=== PATIENT | female | born 1965 | race Caucasian/White ===

== ENCOUNTER 2018-11-16 13:27 | Day surgery (SDC) | payer MEDICARE, MEDICAID ==
[2018-11-16] MEDS ORDERED: DIPRIVAN 200 MG/20 ML IV ONE (13:28)
[2018-11-16] MEDS ORDERED: Marcaine 0.5% SDV 10 ML IJ ONE (13:28)
[2018-11-16] MEDS ORDERED: Depo-Medrol 40 MG/ML IM ONE (13:28)
[2018-11-16] MEDS ORDERED: Xylocaine 1% Vial 30 ML PF IJ ONE (13:28)
[2018-11-16] MEDS ORDERED: Lactated Ringers 1,000 ML IV ONE (15:41)
--- NOTE | 2018-11-16 16:42 | XRAY ---
Indication: Right SI joint injection. Intraoperative fluoroscopy was provided for 7 seconds. 2 digital spot images submitted for interpretation demonstrates posterior needle tip projecting over the inferior right SI joint. Correlate with intraoperative findings/report. Partially visualized lower lumbar fusion spinal hardware.
--- NOTE | 2018-11-16 16:42 | XRAY ---
Indication: Left SI joint injection. Intraoperative fluoroscopy was provided for 8 seconds. 2 digital spot images submitted for interpretation demonstrates posterior needle tip projecting over the inferior left SI joint. Correlate with intraoperative findings/report. Partially visualized lower lumbar fusion spinal hardware.
--- NOTE | 2018-11-16 16:44 | XRAY ---
7 seconds fluoroscopy time in surgery for right SI joint injection.
--- NOTE | 2018-11-16 16:44 | XRAY ---
8 seconds fluoroscopy time in surgery for left SI joint injection.
== END 2018-11-16 15:20 | disposition home or self-care (01) ==
LOC: SDC-PAIN 13:27
PROVIDERS: ATTEND Psychiatry & Neurology Pain Medicine
DX: M46.1 Sacroiliitis, not elsewhere classified (principal); Z79.899 Other long term (current) drug therapy; E78.5 Hyperlipidemia, unspecified; I10 Essential (primary) hypertension; F41.9 Anxiety disorder, unspecified; G47.00 Insomnia, unspecified; G25.81 Restless legs syndrome; K21.9 Gastro-esophageal reflux disease without esophagitis; M79.7 Fibromyalgia
CPT/HCPCS: 62323; 72020; 77002; 84703; G0260; 27096; J1030; J2001; J2704

== ENCOUNTER 2019-12-20 11:29 | Day surgery (SDC) | payer MEDICARE ==
[2019-12-20] MEDS ORDERED: Marcaine 0.5% SDV 10 ML IJ ONE (11:30)
[2019-12-20] MEDS ORDERED: Xylocaine 1% Vial 30 ML PF IJ ONE (11:30)
[2019-12-20] MEDS ORDERED: Depo-Medrol 40 MG/ML IM ONE (11:30)
[2019-12-20] MEDS ORDERED: DIPRIVAN 200 MG/20 ML IV ONE (13:08)
[2019-12-20] MEDS ORDERED: Ketamine HCl 50 MG/ML ONE (13:09)
--- NOTE | 2019-12-20 14:40 | XRAY ---
Indication: Bilateral SI joint injection. Intraoperative fluoroscopy was provided for 13 seconds. 4 digital spot image submitted for interpretation demonstrates posterior needle tip projecting over the inferior left and right SI joint. Correlate with intraoperative findings/report.
--- NOTE | 2019-12-20 14:44 | XRAY ---
13 seconds fluoroscopy time in surgery for bilateral SI joint injections.
[2019-12-20] MEDS ORDERED: Lactated Ringers 1,000 ML IV ONE (14:48)
== END 2019-12-20 13:35 | disposition home or self-care (01) ==
LOC: SDC-PAIN 11:29
PROVIDERS: ATTEND Psychiatry & Neurology Pain Medicine
DX: M46.1 Sacroiliitis, not elsewhere classified (principal); I10 Essential (primary) hypertension; E78.5 Hyperlipidemia, unspecified; G47.00 Insomnia, unspecified; G25.81 Restless legs syndrome; K21.9 Gastro-esophageal reflux disease without esophagitis; M79.7 Fibromyalgia; Z79.899 Other long term (current) drug therapy
CPT/HCPCS: 72202; 77002; G0260; 27096; J1030; J2001; J2704

== ENCOUNTER 2020-01-31 09:19 | Day surgery (SDC) | payer MEDICARE ==
[2020-01-31] MEDS ORDERED: Depo-Medrol 40 MG/ML IM ONE (09:20)
[2020-01-31] MEDS ORDERED: LIDOCAINE HCL 2% 100 MG/5 ML IJ ONE (09:20)
[2020-01-31] MEDS ORDERED: DIPRIVAN 200 MG/20 ML IV ONE (10:51)
[2020-01-31] MEDS ORDERED: Ketamine HCl 50 MG/ML ONE (10:51)
--- NOTE | 2020-01-31 12:11 | XRAY ---
Indication: Bilateral L3-S1 MBB. Intraoperative fluoroscopy was provided for 29 seconds. 3 digital spot images submitted for interpretation demonstrate posterior needle tips projecting over the expected course of the left and right L3-S1 nerve roots. Correlate with intraoperative findings/report. Incidental bilateral L4-L5 posterior fusion hardware with intervertebral spacer.
--- NOTE | 2020-01-31 12:20 | XRAY ---
29 seconds fluoroscopy time in surgery for bilateral L3-S1 MBB.
[2020-01-31] MEDS ORDERED: Lactated Ringers 1,000 ML IV ONE (15:55)
== END 2020-01-31 11:10 | disposition home or self-care (01) ==
LOC: SDC-PAIN 09:19
PROVIDERS: ATTEND Psychiatry & Neurology Pain Medicine
DX: M47.816 Spondylosis without myelopathy or radiculopathy, lumbar region (principal); I10 Essential (primary) hypertension; G25.81 Restless legs syndrome; E78.5 Hyperlipidemia, unspecified; F41.8 Other specified anxiety disorders; G47.00 Insomnia, unspecified; M79.7 Fibromyalgia; M54.12 Radiculopathy, cervical region; K21.9 Gastro-esophageal reflux disease without esophagitis; Z79.899 Other long term (current) drug therapy
CPT/HCPCS: 64493; 64494; 64495; 72020; 77002; J1030; J2704